=== PATIENT | female | born 1955 | race Caucasian/White ===

== ENCOUNTER 2024-08-24 15:55 | Emergency (ER) | payer OTHER, SELFPAY ==
[2024-08-24 16:26] VITALS: BP 150/79; PULSE 72; RESP 18; TEMP 36.8; O2SAT 98; BMI 24.7
--- NOTE | 2024-08-24 16:56 | ED.GENADULT ---
HPI - General Adult General Date Seen: 08/24/24 Chief complaint: Back Injury/Pain Stated complaint: back pain Time Seen by Provider: 08/24/24 16:56 History of Present Illness HPI narrative: 68 yo F with a past medical history of a bulging disc affecting L5-S1. She has had trouble with low back pain off and on for several years and in fact she has had a previous back surgery done about 7 years ago by a spine surgeon in the [facility] (possibly [facility]? ). She is or to have recurrent pain in her low back this summer. After 12 weeks of conservative therapy she underwent a steroid injection in her low back on May 12. She has had significant improvement in her back pain and its associated pain that had been radiating down her left leg and had been doing well for a couple of months. She started having recurrent leg symptoms a couple of weeks ago. No recent injury or new activity or specific reason for the pain flare up. However, since Thursday, when she was sitting in a padded sikh pew she has had a significant flare pain in particular pain radiating from her left buttock all the way down the posterior left thigh, lateral left knee and sometimes down into her left foot. She is not having any numbness or weakness in her leg. Normal function of her bowel and bladder. No fever. She has no recent fall or injury. She has been trying to manage her pain with Tylenol and ibuprofen but cannot get comfortable. She tried to get a hold of her spine team, but since today is [place], they are not answering her phone calls so she was forced to come here to the ER seeking analgesia. She has plans to follow up with her chiropractor in her spine team tomorrow, after the holiday. Related Data Previous Rx's ?Medication ?Instructions ?Recorded methylprednisolone 4 mg tablets in See Rx Instructions PO .COMPLEX 08/24/24 a dose pack (Medrol (Anupam)) #21 ea Allergies Allergy/AdvReac Type Severity Reaction Status Date / Time amoxicillin Allergy Intermediate Hives Verified 08/24/24 16:24 PFSH PFS Social History Smoking Status: Never smoker Do you use any of these nicotine containing products: None How often do you have a drink containing alcohol: monthly or less How often do you have six or more drinks on one occasion: Never AUDIT-C Alcohol total score: 1 Non-prescribed substance use: denies use service: No Exam Narrative: Exam Narrative: Constitutional: Appears well-developed and well-nourished. Alert. Conversant. Non toxic. Uncomfortable and prefers to stay standing. She says she has a lot more pain when she tries to bend at the waist put her hip into a ?L? shape HENT: Head: Atraumatic. Nose: Nose normal. Mouth/Throat: Oral mucosa is clear and moist. no trismus. Pharynx normal. Tonsils symmetric. No tonsillar enlargement, erythema, or exudate. Eyes: Conjunctivae normal. EOM normal. Pupils equal, round, and reactive to light. No scleral icterus. Neck: Normal range of motion. Neck supple. No tracheal deviation present. Cardiovascular: Normal rate, regular rhythm. Normal capillary refill Pulmonary/Chest: Effort normal. No stridor. No respiratory distress. No tenderness. Abdominal: Soft.No distension. No mass. No tenderness. No rebound. No guarding. Musculoskeletal: RUE: Normal range of motion. No tenderness. No deformity LUE: Normal range of motion. No tenderness. No deformity Pelvis is stable. Inspection of her low back is normal. No midline tenderness of the lumbar spine. No step-off. RLE: Normal range of motion. No edema. No tenderness. No deformity LLE: Normal range of motion. No edema. No tenderness. No deformity Neurological: Alert and oriented to person, place, and time. Normal strength. CN II-VII intact. No sensory deficit. GCS eye subscore is 4. GCS verbal subscore is 5. GCS motor subscore is 6. Normal coordination Sensory: Normal light touch sensation bilaterally on the anteromedial thigh (L3), medial malleolus (L4), dorsal first web space (L5), lateral malleolus (S1). Strength: 5/5 strength hip flexors (L3) on the right and left 5/5 strength in the quadriceps (L4) on the right and left 5/5 strength in the tibialis anterior 5/5 strength in the EHL (L5) on the right and left 5/5 strength in the gastrocnemius (S1) on the right and left 5/5 strength in the hamstring on the right and left She has a positive straight leg raise on the left. Negative on the right. Gait is steady. No foot drop. No weakness. Skin: Skin is warm and dry. No rash noted. No pallor. Normal capillary refill. Psychiatric: Normal mood. Normal affect. Const: Vital Signs, click to edit/add: Vital Signs - 24 hr 08/24/24 16:26 Temperature 98.3 F Pulse Rate [Pulse Oximeter] 72 Respiratory Rate 18 Blood Pressure [Ri ght Upper Arm] 150/79 H Pulse Oximetry 98 Oxygen Delivery Me thod Room Air Course Vital Signs Vital signs: Initial Vital Signs Temperature 98.3 F 08/24/24 16:26 Temperature Source Temporal Artery Scan 08/24/24 16:26 Pulse Rate 72 08/24/24 16:26 Respiratory Rate 18 08/24/24 16:26 Blood Pressure 150/79 H 08/24/24 16:26 Blood Pressure Mean 102 08/24/24 16:26 Pulse Oximetry 98 08/24/24 16:26 Oxygen Delivery Method Room Air 08/24/24 16:26 Vital Signs Temperature 98.3 F 08/24/24 16:26 Pulse Rate 72 08/24/24 16:26 Respiratory Rate 18 08/24/24 16:26 Blood Pressure 150/79 H 08/24/24 16:26 Pulse Oximetry 98 08/24/24 16:26 Oxygen Delivery Method Room Air 08/24/24 16:26 Temperature 98.3 F 08/24/24 16:26 Pulse Rate 72 08/24/24 16:26 Respiratory Rate 18 08/24/24 16:26 Blood Pressure 150/79 H 08/24/24 16:26 Pulse Oximetry 98 08/24/24 16:26 Oxygen Delivery Method Room Air 08/24/24 16:26 Medications Administered Medications: Discontinued Medications Generic Name Dose Route Start Last Admin Trade Name Freq PRN Reason Stop Dose Admin Hydrocodone Bitart/Acetaminophen 1 tab 08/24/24 17:37 08/24/24 17:49 Hydrocodone-Acetamin 5-325 Mg 1 Tab PO 08/24/24 17:38 1 tab ONCE ONE Administration Cyclobenzaprine HCl 10 mg 08/24/24 17:37 08/24/24 17:51 Cyclobenzaprine Hcl 10 Mg Tablet PO 08/24/24 17:38 10 mg ONCE ONE Administration Dexamethasone 10 mg 08/24/24 17:37 08/24/24 17:50 Dexamethasone 4 Mg Tablet PO 08/24/24 17:38 10 mg ONCE ONE Administration Medical Decision Making [facility] Narrative Medical decision making narrative: This patient presented with back pain. Broad differential considered. The patient did not sustain any trauma, therefore x-rays are not necessary due to the low likelihood of fracture or subluxation. No red flag symptoms to suggest CT and/or MRI is indicated at this point. The patient has not had a fever, saddle/perineal anesthesia, bilateral foot numbness, or bowel or bladder dysfunction. There is no clinical evidence of cauda equina syndrome, discitis, spinal/epidural space hematoma or epidural abscess. Patient has a history of a previous lumbar spine surgery and has a known L5-S1 radiculopathy with previous steroid injection 3 months ago. Symptoms here today are suggestive of her recurrence of left leg radiculopathy. Probably in the L5 nerve root. She is in the process of working with her spine team and likely will have another steroid injection soon. She came here to the ER because she is not getting pain relief with her [id number] pain medications and she cannot get in contact with her spine team because of the hol. She was administered steroids here in the ER and will send her home on a Medrol Dosepak, suspected the probably is recurrent inflammation of her disc. Given [place] and Flexeril for pain. Pain has improved with interventions in the emergency department. The patient will be discharged with pain medications to use as directed. Instymeds prescriptions for Flexeril 10 mg t.i.d. p.r.n.-15 tablets. [place] 1-2 tablets q.6 hours p.r.n.-12 tablets. Opiate and sedation precautions reviewed. Ice or heat to the back and stretching exercises. No heavy lifting, bending or twisting. Return if increasing pain, numbness, weakness, or bowel or bladder dysfunction. The patient was advised to schedule follow-up with their primary doctor within 2-3 days to re-assess symptoms. Return precautions reviewed and questions answered. Discharge Plan Discharge Clinical Impression: Lumbar radiculopathy Patient Disposition: Home, Self-Care Condition: Stable Instructions: Lumbar Radiculopathy (ED) Additional Instructions: As we discussed, to treat your back pain and leg pain, continue with Tylenol and ibuprofen. Tylenol 1000 mg every 6 hours as needed. Ibuprofen 600 mg every 6 hours as needed. If you have pain uncontrolled by Tylenol or ibuprofen, add the prescription muscle relaxer (Flexeril) or the prescription pain killer ([place]). Use caution with prescription muscle relaxers and pain killers because they both cause dizziness, drowsiness, and can be addictive. Please call your doctor at [facility] and your doctors at [facility] tomorrow morning to arrange follow-up visits for your worsening pain. We will also try you on a short course of steroid pills to try to help your back/bulging disc get better. You received the 1st dose here in the ER and can fill the prescription at your pharmacy tomorrow. If you notice other worsening symptoms such as high fever, new numbness or weakness in her leg, problems with function of your bladder or bowels, please come back to the ER right away to be rechecked. Prescriptions: New methylprednisolone [Medrol (Anupam)] 4 mg tablets,dose pack See Rx Instructions .ROUTE .COMPLEX Qty: 21 0RF Rx Instructions: orally per package directions Stand Alone Forms: BOLD Guidance Info Instructions
[2024-08-24] MEDS: HYDROCODONE-ACETAMIN 5-325 MG 1 TAB PO (17:49)
[2024-08-24] MEDS: dexAMETHasone 4 MG TABLET 10 MG PO (17:50)
[2024-08-24] MEDS: CYCLOBENZAPRINE HCL 10 MG TABLET PO (17:51)
== END 2024-08-24 18:41 | disposition home or self-care (01) ==
LOC: ED 17:49
PROVIDERS: Emergency Provider Emergency Medicine; PCP Family Medicine
DX: M54.16 Radiculopathy, lumbar region (principal)
CPT/HCPCS: 99283; A9270